=== PATIENT | female | born 1980 | race Caucasian/White ===

== ENCOUNTER 2022-09-28 02:25 | Inpatient (IN) | payer SELFPAY ==
[~2022-09-28] VITALS: Ht 175.3 cm; Wt 64.9 kg
[2022-09-28] VITALS (16 sets, daily range): BP systolic 123–174; BP diastolic 81–104
[2022-09-28 05:17] LABS: HEMATOCRIT 44.7 % (31.2-41.9); MEAN CORPUSCULAR HEMOGLOBIN 26.2 uug (24.7-32.8); MEAN CORPUSCULAR VOLUME 85.8 fL (75.5-95.3); PLATELET COUNT (AUTO) 379 K/uL (179-408)
[2022-09-28 05:21] LABS: CHLORIDE 94 mmol/L (98-107)
[2022-09-28 05:22] LABS: CARBON DIOXIDE 5 mmol/L (21-32); GLUCOSE 528 mg/dL (74-106); UREA NITROGEN, BLOOD 17 mg/dL (7-18)
[2022-09-28 05:23] LABS: ALANINE AMINOTRANSFERASE 44 U/L (14-59); ALKALINE PHOSPHATASE 110 U/L (50-136); ASPARTATE AMINOTRANSFERASE 36 U/L (15-37); BILIRUBIN,TOTAL 0.4 mg/dL (0.2-1.0); CREATININE 1.2 mg/dL (0.6-1.3)
[2022-09-28] MEDS ORDERED: METF-442 PO (05:23)
[2022-09-28] MEDS ORDERED: PRAV20TA4 PO (05:23)
[2022-09-28] MEDS ORDERED: FLUO20CA36 PO (05:23)
[2022-09-28] MEDS ORDERED: LISI20TA30 PO (05:23)
[2022-09-28 05:24] LABS: AMYLASE 35 U/L (25-115); LIPASE 184 U/L (73-393); TOTAL PROTEIN, SERUM 8.5 g/dL (6.4-8.2)
[2022-09-28 05:25] LABS: ACETAMINOPHEN < 2.0 ug/mL (10-30); ETHANOL < 3 MG/DL (0-0)
[2022-09-28 05:27] LABS: *CLARITY,URINE HAZY (CLEAR); *COLOR,URINE YELLOW (YELLOW)
[2022-09-28 05:28] LABS: *BILIRUBIN,URIN 1+ (NEGATIVE); *BLOOD, URINE 2+ (NEGATIVE); *KETONES,URINE 4+ (NEGATIVE); UGLUCOSE 2+ (NEGATIVE)
[2022-09-28 05:29] LABS: *UROBILINOGEN,URINE 0.2 E.U./dl (NORMAL); BACTERIA,URINE FEW /HPF (NONE SEEN); LEUKOCYTE ESTERASE ,URINE NEGATIVE (NEGATIVE); NITRITE, URINE NEGATIVE (NEGATIVE); RBC,URINE 0-3 /HPF (0-3); SQUAMOUS EPITHELIAL CELL,UR FEW /HPF (NONE SEEN)
[2022-09-28] MEDS ORDERED: METRONIDAZOLE 500 MG/NS 100 ML PIGGYBACK IV ONE (05:30)
[2022-09-28] MEDS ORDERED: CEFTRIAXONE 1 G in IV DEXTROSE 5% 50 ML IV ONE (05:30)
[2022-09-28 05:31] LABS: *AMPHETAMINE, URINE NEGATIVE (NEGATIVE); *COCCAINE, URINE NEGATIVE (NEGATIVE)
[2022-09-28 05:32] LABS: *CANNABINOID, URINE POSITIVE (NEGATIVE); *PHENCYCLIDINE SCREEN,URINE NEGATIVE (NEGATIVE)
[2022-09-28 06:03] LABS: PHOSPHOROUS 5.3 mg/dL (2.5-4.9)
[2022-09-28 06:05] LABS: CREATININE 1.1 mg/dL (0.6-1.3); POTASSIUM 4.4 mmol/L (3.5-5.1)
[2022-09-28] MEDS ORDERED: SODIUM BICARBONATE 8.4% 50 MEQ/50 ML VIAL IV ONE (06:15)
[2022-09-28 06:27] LABS: BILIRUBIN,DIRECT 0.1 mg/dL (0.0-0.2); BILIRUBIN,TOTAL 0.5 mg/dL (0.2-1.0); TOTAL PROTEIN, SERUM 8.3 g/dL (6.4-8.2)
[2022-09-28] MEDS ORDERED: INSULIN REGULAR, HUMAN 100 UNIT in IV NORMAL SALINE 99 ML IV PRN ×2 (06:45)
[2022-09-28] MEDS ORDERED: IV NS 1000 ML 1,000 ML IV PRN (07:00)
[2022-09-28] MEDS ORDERED: IV NORMAL SALINE 500 ML BAG IV ONE (07:00)
[2022-09-28] MEDS ORDERED: REMEDY ESSENTIAL ZINC PASTE 113 GM TP PRN (07:00)
[2022-09-28] MEDS: BLOOD SUGAR DIAGNOSTIC 1 EACH STRIP VI SCH ×17 (07:00→23:00)
[2022-09-28] MEDS ORDERED: MAGNESIUM HYDROXIDE 30 ML LIQUID UDC PO PRN (07:00)
[2022-09-28 08:06] LABS: CREATININE 0.9 mg/dL (0.6-1.3)
[2022-09-28] MEDS: PANTOPRAZOLE SODIUM 40 MG VIAL IV SCH (09:15)
[2022-09-28] MEDS: ONDANSETRON 4 MG/2 ML VIAL IV PRN ×3 (09:16→22:30)
[2022-09-28] MEDS ORDERED: POTASSIUM CHLORIDE 10 MEQ in IV NS 1000 ML 1,000 ML IV PRN (12:15)
[2022-09-28 13:23] LABS: CREATININE 0.8 mg/dL (0.6-1.3); POTASSIUM 4.2 mmol/L (3.5-5.1)
[2022-09-28] MEDS: METRONIDAZOLE 500 MG/NS 100ML 500 MG in PREMIXED 1 EACH IV SCH ×2 (13:36→21:18)
[2022-09-28] MEDS: ACETAMINOPHEN 325 MG TABLET PO PRN ×2 (13:59→22:18)
[2022-09-28 17:09] LABS: CREATININE 0.9 mg/dL (0.6-1.3); POTASSIUM 3.8 mmol/L (3.5-5.1)
[2022-09-28] MEDS: IV D5/ 0.9% NACL 1,000 ML IV PRN ×2 (17:27→23:33)
[2022-09-28] MEDS: INSULIN REGULAR, HUMAN 100 UNIT in IV NORMAL SALINE 99 ML IV PRN ×2 (17:51)
[2022-09-28 21:04] LABS: CREATININE 0.8 mg/dL (0.6-1.3); POTASSIUM 3.8 mmol/L (3.5-5.1)
[2022-09-28] MEDS ORDERED: hydrALAZINE HCL 20 MG/1 ML VIAL ONE (21:28)
[2022-09-28] MEDS: hydrALAZINE HCL 20 MG/1 ML VIAL IV PRN (21:34)
[2022-09-29] VITALS (14 sets, daily range): BP systolic 140–176; BP diastolic 79–118
[2022-09-29] MEDS: BLOOD SUGAR DIAGNOSTIC 1 EACH STRIP VI SCH ×15 (00:01→20:27)
[2022-09-29 00:55] LABS: CREATININE 0.8 mg/dL (0.6-1.3); POTASSIUM 3.2 mmol/L (3.5-5.1)
[2022-09-29] MEDS: hydrALAZINE HCL 20 MG/1 ML VIAL IV PRN ×2 (01:45→06:15)
[2022-09-29] MEDS: CEFTRIAXONE 1 G in IV DEXTROSE 5% 50 ML IV SCH (04:21)
[2022-09-29 05:20] LABS: HEMATOCRIT 36.1 % (31.2-41.9); MEAN CORPUSCULAR HEMOGLOBIN 25.8 uug (24.7-32.8); MEAN CORPUSCULAR VOLUME 81.3 fL (75.5-95.3); PLATELET COUNT (AUTO) 287 K/uL (179-408)
[2022-09-29 05:36] LABS: CREATININE 0.7 mg/dL (0.6-1.3)
[2022-09-29 05:40] LABS: MAGNESIUM 1.8 mg/dL (1.8-2.4)
[2022-09-29] MEDS: IV D5/ 0.9% NACL 1,000 ML IV PRN (05:41)
[2022-09-29 05:50] LABS: PHOSPHOROUS 0.8 mg/dL (2.5-4.9)
[2022-09-29] MEDS: METRONIDAZOLE 500 MG/NS 100ML 500 MG in PREMIXED 1 EACH IV SCH ×3 (05:58→22:14)
[2022-09-29] MEDS ORDERED: hydrALAZINE HCL 20 MG/1 ML VIAL ONE (06:13)
[2022-09-29] MEDS ORDERED: PANTOPRAZOLE SODIUM 40 MG VIAL ONE (07:56)
[2022-09-29] MEDS: PANTOPRAZOLE SODIUM 40 MG VIAL IV SCH (08:11)
[2022-09-29] MEDS: INSULIN REGULAR, HUMAN 100 UNIT in IV NORMAL SALINE 99 ML IV PRN ×2 (08:30)
[2022-09-29] MEDS ORDERED: POTASSIUM CHLORIDE 300 ML ONE (09:57)
[2022-09-29] MEDS: POTASSIUM CHLORIDE 50 ML IV SCH ×2 (09:59→11:00)
[2022-09-29] MEDS ORDERED: POTASSIUM CHLORIDE 10 MEQ, LIDOCAINE-MPF 1% 1 ML in IV DEXTROSE 5% 100 ML IV SCH (11:00)
[2022-09-29] MEDS ORDERED: HYDROCODONE/APAP 5-325MG TABLET ONE (11:16)
[2022-09-29] MEDS: HYDROCODONE/APAP 5-325MG TABLET PO PRN (11:16)
[2022-09-29] MEDS ORDERED: INSULIN REGULAR, HUMAN 300 UNIT/3 ML VIAL SQ PRN (11:45)
[2022-09-29] MEDS ORDERED: POTASSIUM PHOSPHATE MM 30 MMOL in IV NORMAL SALINE 250 ML IV ONE (11:45)
[2022-09-29] MEDS ORDERED: DEXTROSE 50% 50 ML DISP.SYRIN IV PRN ×2 (11:45→18:45)
[2022-09-29] MEDS: POTASSIUM PHOSPHATE MM 15 MMOL in IV NORMAL SALINE 250 ML IV SCH ×2 (11:52→20:07)
[2022-09-29] MEDS: ACETAMINOPHEN 325 MG TABLET PO PRN (13:46)
[2022-09-29] MEDS ORDERED: INSULIN REGULAR, HUMAN 300 UNITS/3 ML VIAL SQ PRN (18:45)
[2022-09-29] MEDS: INSULIN REGULAR, HUMAN 300 UNIT/3 ML VIAL SQ PRN (20:30)
[2022-09-30] MEDS: hydrALAZINE HCL 20 MG/1 ML VIAL IV PRN (02:30)
[2022-09-30] MEDS: HYDROCODONE/APAP 5-325MG TABLET PO PRN ×2 (02:38→11:26)
[2022-09-30] MEDS: CEFTRIAXONE 1 G in IV DEXTROSE 5% 50 ML IV SCH (04:08)
[2022-09-30] MEDS: METRONIDAZOLE 500 MG/NS 100ML 500 MG in PREMIXED 1 EACH IV SCH ×2 (05:33→14:21)
[2022-09-30] MEDS: BLOOD SUGAR DIAGNOSTIC 1 EACH STRIP VI SCH ×3 (06:52→16:30)
[2022-09-30 07:22] LABS: HEMATOCRIT 30.6 % (31.2-41.9); MEAN CORPUSCULAR HEMOGLOBIN 26.7 uug (24.7-32.8); MEAN CORPUSCULAR VOLUME 80.3 fL (75.5-95.3); PLATELET COUNT (AUTO) 218 K/uL (179-408)
[2022-09-30 07:41] LABS: CARBON DIOXIDE 22 mmol/L (21-32); CHLORIDE 99 mmol/L (98-107); CREATININE 0.4 mg/dL (0.6-1.3); POTASSIUM 3.1 mmol/L (3.5-5.1); UREA NITROGEN, BLOOD 4 mg/dL (7-18)
[2022-09-30 07:45] LABS: MAGNESIUM 1.7 mg/dL (1.8-2.4); PHOSPHOROUS 2.9 mg/dL (2.5-4.9)
[2022-09-30 07:53] LABS: GLUCOSE 304 mg/dL (74-106)
[2022-09-30] MEDS: INSULIN REGULAR, HUMAN 300 UNIT/3 ML VIAL SQ PRN ×2 (08:42→11:39)
[2022-09-30] MEDS: PANTOPRAZOLE SODIUM 40 MG VIAL IV SCH (08:46)
[2022-09-30] MEDS ORDERED: POTASSIUM CHLORIDE 20 MEQ TAB.PRT.SR PO ONE (10:00)
[2022-09-30] MEDS: MAGNESIUM SULFATE/D5W 100 ML IV SCH ×2 (10:01→11:06)
[2022-09-30 12:08] VITALS: BP 129/91
[2022-09-30 16:05] VITALS: BP 157/93
[2022-09-30] MEDS ORDERED: METRONIDAZOLE 500 MG TABLET PO SCH (22:00)
== END 2022-09-30 18:50 | disposition home or self-care (01) | DRG 871 ==
LOC: ER 02:25 → TRANSITION 07:10 → TELE3 09-29 12:30
PROVIDERS: ADMIT Student in an Organized Health Care Education/Training Program; ATTEND Nurse Practitioner Acute Care
DX: A41.9 Sepsis, unspecified organism (principal); E11.10 Type 2 diabetes mellitus with ketoacidosis without coma; E87.1 Hypo-osmolality and hyponatremia; K52.9 Noninfective gastroenteritis and colitis, unspecified; Z20.822 Contact with and (suspected) exposure to COVID-19; E86.1 Hypovolemia; E11.65 Type 2 diabetes mellitus with hyperglycemia; T38.3X6A Underdosing of insulin and oral hypoglycemic [antidiabetic] drugs, initial encounter; Z91.138 Patient's unintentional underdosing of medication regimen for other reason; Y92.89 Other specified places as the place of occurrence of the external cause; Z79.84 Long term (current) use of oral hypoglycemic drugs; R82.5 Elevated urine levels of drugs, medicaments and biological substances
CPT/HCPCS: 36415; 83605; 83690; 83735; 84100; 85025; 87040; A4663; C9113; G0378; G0480; J0360; J0696; J1815; J2001; J3475; J3480; J3490; J7040; J7042